=== PATIENT | female | born 1975 | race Caucasian/White ===

== ENCOUNTER 2017-06-12 13:05 | Emergency (ER) | payer MEDICAID ==
[~2017-06-12] VITALS: Ht 170.2 cm; Wt 61.2 kg
[~2017-06-12 13:05] MED LIST: CA C1TAB98 PO; CHOL50004 PO; HYDR-548 PO; IBUP-1953 PO; OMEP40CA37 PO; PRED20TA PO; TIZA4TAB11 PO
[2017-06-12] MEDS ORDERED: GABA600T2 PO (13:27)
[2017-06-12] MEDS ORDERED: [UNRECOGNIZED DRUG - OTHER] (13:27)
[2017-06-12] MEDS ORDERED: TIZA4TAB4 PO (13:27)
--- NOTE | 2017-06-12 13:47 | NUR ---
pt is in room #1b. dr hummel evaluated the pt.
[2017-06-12 14:20] LABS: BASOPHILS % (AUTO) 0.3 % (0.0-2.0); CARBON DIOXIDE 31 mmol/L (21-32); CHLORIDE 105 mmol/L (98-107); CREATININE 0.7 mg/dL (0.6-1.3); EOSINOPHILS # (AUTO) 0.4 K/uL (0.0-0.7); GLUCOSE 102 mg/dL (74-106); HEMATOCRIT 32.6 % (31.2-41.9); HEMOGLOBIN 10.7 g/dL (10.9-14.3); LYMPHOCYTES # (AUTO) 2.1 K/uL (20.0-40.0); LYMPHOCYTES % (AUTO) 21.2 % (20.5-51.5); MEAN CORPUSCULAR HEMOGLOBIN 26.3 uug (24.7-32.8); MEAN CORPUSCULAR HGB CONC 33 g/dL (32.3-35.6); MEAN CORPUSCULAR VOLUME 80.1 fL (75.5-95.3); MONOCYTES # (AUTO) 0.9 K/uL (2.0-10.0); NEUTROPHILS # (AUTO) 6.4 K/uL (1.8-8.9); NEUTROPHILS % (AUTO) 65.5 % (38.5-71.5); PLATELET COUNT (AUTO) 297 K/uL (179-408); POTASSIUM 3.9 mmol/L (3.5-5.1); RED BLOOD CELL COUNT(AUTO) 4.07 MIL/uL (3.63-4.92); UREA NITROGEN, BLOOD 9 mg/dL (7-18); WHITE BLOOD COUNT (AUTO) 9.8 K/uL (3.8-11.8)
[2017-06-12 14:25] LABS: ALANINE AMINOTRANSFERASE 25 U/L (14-59); ALKALINE PHOSPHATASE 56 U/L (50-136); ASPARTATE AMINOTRANSFERASE 23 U/L (15-37); BILIRUBIN,DIRECT < 0.1 mg/dL (0.0-0.2); BILIRUBIN,TOTAL 0.1 mg/dL (0.2-1.0); TOTAL PROTEIN, SERUM 7.2 g/dL (6.4-8.2)
--- NOTE | 2017-06-12 15:05 | NUR ---
PT WAS D/C TO HOME AFTER ER MD RE-EVALUATION. D/C INSTRUCTIONS GIVEN TO THE PT.
[2017-06-12 15:06] VITALS: BP 136/76
== END 2017-06-12 15:07 | disposition home or self-care (01) ==
LOC: ER 13:07
DX: J18.9 Pneumonia, unspecified organism (principal); Z90.49 Acquired absence of other specified parts of digestive tract; Z79.1 Long term (current) use of non-steroidal anti-inflammatories (NSAID); Z79.891 Long term (current) use of opiate analgesic; Z79.899 Other long term (current) drug therapy
CPT/HCPCS: 36415; 70030-TC; 71045; 84703; 85025; 93005; A4663

== ENCOUNTER 2017-07-22 15:21 | Emergency (ER) | payer MEDICAID ==
[~2017-07-22] VITALS: Ht 170.2 cm; Wt 61.2 kg
[~2017-07-22 15:21] MED LIST changes: +GABA600T2 PO; +TIZA4TAB4 PO; +[UNRECOGNIZED DRUG - OTHER]
[2017-07-22 16:03] LABS: BASOPHILS % (AUTO) 0.7 % (0.0-2.0); EOSINOPHILS # (AUTO) 0.3 K/uL (0.0-0.7); EOSINOPHILS % (AUTO) 4.4 % (0.0-7.0); HEMATOCRIT 33.5 % (31.2-41.9); LYMPHOCYTES # (AUTO) 2.6 K/uL (20.0-40.0); LYMPHOCYTES % (AUTO) 41.7 % (20.5-51.5); MEAN CORPUSCULAR HEMOGLOBIN 26.3 uug (24.7-32.8); MEAN CORPUSCULAR HGB CONC 33 g/dL (32.3-35.6); MEAN CORPUSCULAR VOLUME 80.5 fL (75.5-95.3); MONOCYTES # (AUTO) 0.5 K/uL (2.0-10.0); MONOCYTES % (AUTO) 8.7 % (0.0-11.0); NEUTROPHILS # (AUTO) 2.7 K/uL (1.8-8.9); NEUTROPHILS % (AUTO) 44.5 % (38.5-71.5); PLATELET COUNT (AUTO) 234 K/uL (179-408); RED BLOOD CELL COUNT(AUTO) 4.16 MIL/uL (3.63-4.92); WHITE BLOOD COUNT (AUTO) 6.2 K/uL (3.8-11.8)
[2017-07-22 16:09] LABS: CREATININE 0.7 mg/dL (0.6-1.3); POTASSIUM 4.3 mmol/L (3.5-5.1)
[2017-07-22 16:14] LABS: BILIRUBIN,DIRECT 0.1 mg/dL (0.0-0.2); BILIRUBIN,TOTAL 0.3 mg/dL (0.2-1.0); TOTAL PROTEIN, SERUM 6.6 g/dL (6.4-8.2)
--- NOTE | 2017-07-22 17:00 | NUR ---
Patient discharged to home in stable conditon. Written and verbal after care instructions given. Patient verbalizes understanding of instructions.
[2017-07-22 17:01] VITALS: BP 122/78
== END 2017-07-22 17:02 | disposition home or self-care (01) ==
LOC: ER 15:21
DX: J18.9 Pneumonia, unspecified organism (principal); Z90.49 Acquired absence of other specified parts of digestive tract; Z79.891 Long term (current) use of opiate analgesic; Z79.1 Long term (current) use of non-steroidal anti-inflammatories (NSAID); Z79.899 Other long term (current) drug therapy
CPT/HCPCS: 36415; 70030-TC; 71045; 84703; 85025; 85730; 93005; A4663

== ENCOUNTER 2018-12-18 13:52 | Emergency (ER) | payer BC, MEDICAID ==
[~2018-12-18] VITALS: Ht 170.2 cm; Wt 59.0 kg
[~2018-12-18 13:52] MED LIST changes: +GABA600T12 PO; -GABA600T2 PO; +HYDR-4354 PO; -HYDR-548 PO; -TIZA4TAB4 PO; +TIZA4TAB5 PO
--- NOTE | 2018-12-18 14:21 | NUR ---
Note undone in [facility] - 12/18/18 at 1422 by GMATEOS chest x-ray per protocol. Addendum: 12/18/18 at 1421 by GMATEOS Amendment undone in [facility] - 12/18/18 at 1422 by GMATEOS EKg per protocol for cp.
--- NOTE | 2018-12-18 14:22 | NUR ---
EKG done PP.
[2018-12-18 14:55] LABS: BASOPHILS % (AUTO) 0.3 % (0.0-2.0); EOSINOPHILS % (AUTO) 0.2 % (0.0-7.0); HEMATOCRIT 36.9 % (31.2-41.9); HEMOGLOBIN 12.3 g/dL (10.9-14.3); LYMPHOCYTES # (AUTO) 0.9 K/uL (20.0-40.0); LYMPHOCYTES % (AUTO) 13.9 % (20.5-51.5); MEAN CORPUSCULAR HGB CONC 33 g/dL (32.3-35.6); MEAN CORPUSCULAR VOLUME 84.2 fL (75.5-95.3); MONOCYTES # (AUTO) 0.2 K/uL (2.0-10.0); MONOCYTES % (AUTO) 2.8 % (0.0-11.0); NEUTROPHILS # (AUTO) 5.2 K/uL (1.8-8.9); NEUTROPHILS % (AUTO) 82.8 % (38.5-71.5); PLATELET COUNT (AUTO) 265 K/uL (179-408); RED BLOOD CELL COUNT(AUTO) 4.39 MIL/uL (3.63-4.92); WHITE BLOOD COUNT (AUTO) 6.3 K/uL (3.8-11.8)
--- NOTE | 2018-12-18 15:05 | NUR ---
at bedside to see and examine patient.
[2018-12-18 15:24] LABS: BILIRUBIN,DIRECT 0.1 mg/dL (0.0-0.2); BILIRUBIN,TOTAL 0.5 mg/dL (0.2-1.0); CREATININE 0.8 mg/dL (0.6-1.3); POTASSIUM 4.5 mmol/L (3.5-5.1)
--- NOTE | 2018-12-18 15:53 | NUR ---
After speaking to Dr. Huang patient decided to leave [facility] [facility] stating she has no one to meat pickler her daughter.
--- NOTE | 2018-12-18 16:00 | NUR ---
Patient left E.R. AMA AAOX4. vitals stable no c/of chest pain or any other discomfort.
== END 2018-12-18 16:01 | disposition left against medical advice (07) ==
LOC: ER 13:52
DX: R07.9 Chest pain, unspecified (principal); Z90.49 Acquired absence of other specified parts of digestive tract; Z79.1 Long term (current) use of non-steroidal anti-inflammatories (NSAID); Z79.899 Other long term (current) drug therapy
CPT/HCPCS: 36415; 70030-TC; 71045; 85025; 93005; A4663

== ENCOUNTER 2023-10-17 10:02 | Emergency (ER) | payer MEDICAID ==
[~2023-10-17 10:02] MED LIST changes: +OMEP40CA21 PO; -OMEP40CA37 PO
== END 2023-10-17 12:18 | disposition home or self-care (01) ==
LOC: ER 10:02
DX: S90.32XA Contusion of left foot, initial encounter (principal); Z79.1 Long term (current) use of non-steroidal anti-inflammatories (NSAID); Z79.891 Long term (current) use of opiate analgesic; W19.XXXA Unspecified fall, initial encounter; Y93.89 Activity, other specified; Y92.89 Other specified places as the place of occurrence of the external cause; Y99.8 Other external cause status
CPT/HCPCS: 73630; A4606; A4663